=== PATIENT | male | born 1945 | race Caucasian/White ===

== ENCOUNTER 2018-10-16 06:14 | Day surgery (SDC) | payer MEDICARE ==
[2018-10-15 13:21] LABS: BASOPHILS # (AUTO) 0.1 X10'3 (0-0.2); BASOPHILS % (AUTO) 1.6 % (0-1); EOSINOPHILS # (AUTO) 0.1 X10'3 (0-0.9); EOSINOPHILS % (AUTO) 2.7 % (0-6); HEMATOCRIT 41.2 % (42.0-52.0); HEMOGLOBIN 13.8 g/dl (14.0-17.9); LYMPHOCYTES # (AUTO) 1.2 X10'3 (1.1-4.8); LYMPHOCYTES % (AUTO) 22.9 % (21-51); MEAN CORPUSCULAR HGB CONC 33.5 g/dL (33.0-36.5); MEAN CORPUSCULAR VOLUME 86.6 FL (78-98); MEAN PLATELET VOLUME 8.4 FL (7.4-10.4); MONOCYTES # (AUTO) 0.5 X10'3 (0-0.9); MONOCYTES % (AUTO) 8.8 % (2-12); NEUTROPHILS # (AUTO) 3.4 X10'3 (1.8-7.7); PLATELET COUNT 188 X10'3 (140-440); RED BLOOD COUNT 4.76 X10'6 (4.70-6.10); RED CELL DISTRIBUTION WIDTH 14.1 % (11.5-14.5); WHITE BLOOD COUNT 5.3 X10'3 (4.5-11.0)
[2018-10-15 13:29] LABS: ALBUMIN 3.5 G/DL (3.4-5.0); ANION GAP 7 (8-16); BLOOD UREA NITROGEN 20 MG/DL (7-18); CALCIUM 8.8 MG/DL (8.5-10.1); CHLORIDE 106 MMOL/L (99-107); CREATININE 1.25 MG/DL (0.60-1.10); GLUCOSE 77 MG/DL (70-104); POTASSIUM 4.3 MMOL/L (3.5-5.1); SODIUM 140 MMOL/L (135-145); TOTAL CARBON DIOXIDE 27.5 MMOL/L (24-32); eGFR 56 ML/MIN
[2018-10-15 13:33] LABS: PARTIAL THROMBOPLASTIN TIME 28 SECONDS (22-32)
[~2018-10-16] VITALS: Ht 172.7 cm; Wt 92.3 kg
[2018-10-16] VITALS (14 sets, daily range): BP systolic 100–138; BP diastolic 63–78
[~2018-10-16 06:14] MED LIST: CHOL200012; METO-539 PO; PRAS50TA; SUPER BETA PROSTATE; [UNRECOGNIZED DRUG - OTHER]
[2018-10-16] MEDS ORDERED: normal saline 1,000 ML IV SCH (06:40)
[2018-10-16] MEDS ORDERED: diphenhydrAMINE 25mg capsule PO PRN (06:40)
[2018-10-16] MEDS ORDERED: LORazepam 0.5 MG tablet PO PRN (06:40)
[2018-10-16] MEDS ORDERED: ASPI-147 (06:53)
[2018-10-16] MEDS ORDERED: SAW/1TAB2 (06:53)
[2018-10-16] MEDS ORDERED: AMIO200T54 PO (06:53)
[2018-10-16] MEDS ORDERED: LOPE2TAB23 (06:53)
[2018-10-16] MEDS ORDERED: midazolam 2 mg/2 ml injection ONE (07:09)
[2018-10-16] MEDS ORDERED: fentaNYL/PF 50MCG/1 ML 2ML syringe ONE (07:10)
[2018-10-16] MEDS ORDERED: LIDOcaine 1% (10mg/ml)w/preservative injection 20ml MDV ONE (07:10)
[2018-10-16] MEDS ORDERED: iohexol 350MG/ML 100ml bottle IV ONE ×2 (07:10→07:51)
[2018-10-16] MEDS ORDERED: pneumococcal 23-VAL P-sac vacc 25 mcg/0.5ml vial IMVAC ONE (07:20)
[2018-10-16] MEDS ORDERED: HYDROcodone/acetaminophen 5mg/325mg tablet PO PRN (08:35)
[2018-10-16] MEDS ORDERED: HYDROcodone/acetaminophen 10/325mg tab PO PRN (08:35)
[2018-10-16] MEDS ORDERED: proCHLORperazine 10 MG/2 ml inj IV PRN (08:35)
[2018-10-16] MEDS ORDERED: ondansetron/PF 4mg/2ml inj IV PRN (08:35)
[2018-10-16] MEDS ORDERED: OXAZEpam 15mg capsule PO PRN (08:35)
[2018-10-16] MEDS ORDERED: acetaminophen 325mg tablet PO PRN (08:35)
== END 2018-10-16 12:55 | disposition home or self-care (01) ==
LOC: SSTAY O 06:14
PROVIDERS: ATTEND Internal Medicine Interventional Cardiology
DX: I25.10 Atherosclerotic heart disease of native coronary artery without angina pectoris (principal); G47.33 Obstructive sleep apnea (adult) (pediatric); Z85.46 Personal history of malignant neoplasm of prostate; I50.9 Heart failure, unspecified; I11.0 Hypertensive heart disease with heart failure
CPT/HCPCS: 36415; 80048; 85025; 85610; 85730; 92920; 93005; 93458; 99152; 99153; A6257; J1644; J2001; J2250; J3010; J7030; Q0163; Q9967; A4620; C1725; C1760; C1769; C9607

== ENCOUNTER 2019-04-05 20:56 | Emergency (ER) | payer MEDICARE ==
[~2019-04-05] VITALS: Ht 172.7 cm; Wt 90.0 kg
[~2019-04-05 20:56] MED LIST changes: +AMIO200T54 PO; +ASPI-147; -CHOL200012; +LOPE2TAB23; -PRAS50TA; +SAW/1TAB2; -SUPER BETA PROSTATE; -[UNRECOGNIZED DRUG - OTHER]
--- NOTE | 2019-04-05 22:25 | NUR ---
Dr Harry at bedside to eval pt
[2019-04-05] MEDS ORDERED: iohexol 300mg/ml 100ml inj. ONE (22:36)
[2019-04-05 23:00] LABS: ALANINE AMINOTRANSFERASE 33 U/L (12-78); ALBUMIN 3.7 G/DL (3.4-5.0); ALBUMIN/GLOBULIN RATIO 1.1 (1.1-1.5); ALKALINE PHOSPHATASE 109 IU/L (46-116); ANION GAP 6 (8-16); ASPARTATE AMINO TRANSFERASE 23 U/L (10-37); BILIRUBIN,TOTAL 0.3 MG/DL (0.1-1.0); BLOOD UREA NITROGEN 15 MG/DL (7-18); BUN/CREATININE RATIO 12.7 (5.4-32.0); CALCIUM 8.6 MG/DL (8.5-10.1); CHLORIDE 108 MMOL/L (99-107); CREATININE 1.18 MG/DL (0.60-1.10); GLUCOSE 70 MG/DL (70-104); POTASSIUM 3.9 MMOL/L (3.5-5.1); SODIUM 141 MMOL/L (135-145); TOTAL CARBON DIOXIDE 27.1 MMOL/L (24-32); TOTAL PROTEIN 7.2 G/DL (6.4-8.2); eGFR 60 ML/MIN
[2019-04-05 23:29] LABS: BASOPHILS # (AUTO) 0.1 X10'3 (0-0.2); BASOPHILS % (AUTO) 0.8 % (0-1); EOSINOPHILS # (AUTO) 0.2 X10'3 (0-0.9); HEMOGLOBIN 14.1 g/dl (14.0-17.9); LYMPHOCYTES # (AUTO) 1.9 X10'3 (1.1-4.8); LYMPHOCYTES % (AUTO) 29.5 % (21-51); MEAN CORPUSCULAR HEMOGLOBIN 29.7 PG (27.0-31.0); MEAN CORPUSCULAR HGB CONC 33.7 g/dL (33.0-36.5); MEAN CORPUSCULAR VOLUME 88.2 FL (78-98); MONOCYTES # (AUTO) 0.6 X10'3 (0-0.9); MONOCYTES % (AUTO) 9.3 % (2-12); NEUTROPHILS # (AUTO) 3.7 X10'3 (1.8-7.7); NEUTROPHILS % (AUTO) 57.4 % (42-75); PLATELET COUNT 178 X10'3 (140-440); RED BLOOD COUNT 4.76 X10'6 (4.70-6.10); RED CELL DISTRIBUTION WIDTH 13.9 % (11.5-14.5); WHITE BLOOD COUNT 6.4 X10'3 (4.5-11.0)
[2019-04-05 23:45] LABS: CLARITY,URINE CLOUDY (Clear); COLOR,URINE RED (Yellow)
[2019-04-05 23:46] LABS: UA COLLECTION TYPE CLN CATCH MIDSTREAM
[2019-04-06 00:03] LABS: BACTERIA,URINE NONE SEEN /HPF (Neg); MUCUS STRANDS FEW /LPF (Neg); RBC,URINE TNTC /HPF (0-2); SQUAMOUS EPITHELIAL CELL,UR FEW /LPF (FEW); WBC,URINE 0-4 /HPF (0-4)
[2019-04-06] MEDS ORDERED: CEPH-572 PO (00:53)
[2019-04-06 02:59] VITALS: BP 126/68
== END 2019-04-06 03:02 | disposition home or self-care (01) ==
LOC: ER 20:56
DX: K80.20 Calculus of gallbladder without cholecystitis without obstruction (principal); K57.90 Diverticulosis of intestine, part unspecified, without perforation or abscess without bleeding; N28.1 Cyst of kidney, acquired; R31.9 Hematuria, unspecified; Z88.8 Allergy status to other drugs, medicaments and biological substances; Z79.899 Other long term (current) drug therapy; Z79.2 Long term (current) use of antibiotics; Z79.82 Long term (current) use of aspirin; Z87.442 Personal history of urinary calculi; Z85.46 Personal history of malignant neoplasm of prostate
CPT/HCPCS: 36415; 51700; 74178; 80053; 81001; 85025; 99284; Q9967

== ENCOUNTER 2019-06-24 09:34 | Day surgery (SDC) | payer MEDICARE ==
[~2019-06-24] VITALS: Ht 172.7 cm; Wt 90.9 kg
[2019-06-24 09:50] VITALS: BP 124/76
[2019-06-24] MEDS ORDERED: PRAS10TA6 PO (10:03)
[2019-06-24] MEDS ORDERED: MIDAZolam 5mg/5ml vial ONE (10:59)
[2019-06-24] MEDS ORDERED: fentaNYL/PF 50MCG/1 ML 2ML syringe ONE (10:59)
[2019-06-24 11:20] VITALS: BP 115/68
[2019-06-24 11:30] VITALS: BP 112/65
[2019-06-24 11:40] VITALS: BP 123/76
[2019-06-24 11:50] VITALS: BP 127/79
== END 2019-06-24 12:15 | disposition home or self-care (01) ==
LOC: GI LAB 09:34
PROVIDERS: ATTEND Internal Medicine Gastroenterology
DX: K92.1 Melena (principal); K64.8 Other hemorrhoids; K62.89 Other specified diseases of anus and rectum
CPT/HCPCS: 45334; G0500; J2250; J3010; J7040; 99152; A4620

== ENCOUNTER 2020-12-02 21:12 | Emergency (ER) | payer MEDICARE ==
[~2020-12-02] VITALS: Ht 172.7 cm; Wt 97.7 kg
[~2020-12-02 21:12] MED LIST changes: -AMIO200T54 PO; -METO-539 PO; +PRAS10TA6 PO
[2020-12-02 21:22] VITALS: BP 156/85
--- NOTE | 2020-12-02 22:25 | NUR ---
Catheter running clear sp irrigation
== END 2020-12-02 23:35 | disposition home or self-care (01) ==
LOC: ER 21:13
DX: N13.9 Obstructive and reflux uropathy, unspecified (principal); R31.9 Hematuria, unspecified; N99.820 Postprocedural hemorrhage of a genitourinary system organ or structure following a genitourinary system procedure; Z87.442 Personal history of urinary calculi; Z88.8 Allergy status to other drugs, medicaments and biological substances; Z79.899 Other long term (current) drug therapy
CPT/HCPCS: 99284

== ENCOUNTER → 2023-06-28 | Outpatient (CLI) | payer MEDICARE ==
[~2023-06-28] VITALS: Ht 172.7 cm; Wt 97.5 kg
[~2023-06-28] MED LIST changes: +ASPI-130 PO; +ASPI81TA52 PO; +ATOR40TA7 PO; +DEXT1TAB PO; +ESOM20CA PO; +FLUT15.815 NS; +L-METHYLFOLATE PO; +LOPE-190 PO; +cefazolin 2gm/D5W 100mL 100 ML IV ONE; +famotidine 20mg tablet PO ONE; +ringers solution, lacted 1,000 ML IV SCH; +tranexamic acid inj. 1,000 MG in normal saline IV soln 100ML IV ONE
[2023-06-28 15:38] LABS: BASOPHILS # (AUTO) 0.1 X10'3 (0-0.2); EOSINOPHILS # (AUTO) 0.1 X10'3 (0-0.9); EOSINOPHILS % (AUTO) 1.8 % (0-6); LYMPHOCYTES # (AUTO) 1.6 X10'3 (1.1-4.8); LYMPHOCYTES % (AUTO) 20.9 % (21-51); MEAN CORPUSCULAR HEMOGLOBIN 29.6 PG (27.0-31.0); MEAN CORPUSCULAR HGB CONC 33.9 g/dL (33.0-36.5); MEAN CORPUSCULAR VOLUME 87.3 FL (78-98); MEAN PLATELET VOLUME 8.3 FL (7.4-10.4); MONOCYTES # (AUTO) 0.6 X10'3 (0-0.9); MONOCYTES % (AUTO) 8.4 % (2-12); NEUTROPHILS # (AUTO) 5.1 X10'3 (1.8-7.7); NEUTROPHILS % (AUTO) 67.9 % (42-75); PRE OP HEMATOCRIT 42.7 % (42.0-52.0); PRE OP HEMOGLOBIN 14.5 g/dL (14.0-17.9); PRE OP PLATELET COUNT 172 X10'3 (140-440); PRE OP WHITE BLOOD COUNT 7.6 10'3 (4.8-10.8); RED BLOOD COUNT 4.89 X10'6 (4.70-6.10); RED CELL DISTRIBUTION WIDTH 14.7 % (11.5-14.5)
[2023-06-28 15:48] LABS: BILIRUBIN,URINE NEGATIVE (Neg); CLARITY,URINE CLOUDY (Clear); COLOR,URINE YELLOW (Yellow); GLUCOSE, URINE NEGATIVE (Neg); KETONES,URINE NEGATIVE (Neg); LEUKOCYTE ESTERASE ,URINE TRACE (Neg); NITRITES, URINE POSITIVE (Neg); OCCULT BLOOD,URINE TRACE-INTACT (Neg); PH,URINE 5.5 (4.8-8.0); PROTEIN,URINE NEGATIVE (Neg); UROBILINOGEN,URINE 0.2 E.U/dL (0.2-1.0)
[2023-06-28 15:50] LABS: PRE OP PROTIME 10.6 SECONDS (9.0-12.0)
[2023-06-28 15:52] LABS: UA COLLECTION TYPE VOIDED
[2023-06-28 16:01] LABS: ALBUMIN 3.6 G/DL (3.4-5.0); ALBUMIN/GLOBULIN RATIO 0.9 (1.1-1.5); ALKALINE PHOSPHATASE 156 IU/L (46-116); BLOOD UREA NITROGEN 14 MG/DL (7-18); BUN/CREATININE RATIO 12.8 (10.0-20.0); CALCIUM 9.2 MG/DL (8.5-10.1); CHLORIDE 105 MMOL/L (99-107); CREATININE 1.09 MG/DL (0.60-1.10); PRE OP ALT 47 U/L (30-65); PRE OP ANION GAP 7 (8-16); PRE OP AST 30 U/L (10-37); PRE OP BILIRUB, TOTAL 0.3 MG/DL (0.0-1.0); PRE OP GLUCOSE 88 MG/DL (70-104); PRE OP SODIUM 141 MMOL/L (135-145); TOTAL CARBON DIOXIDE 29.2 MMOL/L (24-32); TOTAL PROTEIN 7.5 G/DL (6.4-8.2); eGFR 65 ML/MIN
[2023-06-28 16:57] LABS: BACTERIA,URINE 4+ /HPF (Neg)
[2023-06-28 16:59] LABS: RBC,URINE 0-2 /HPF (0-2)
[2023-06-28 17:00] LABS: MUCUS STRANDS FEW /LPF (Neg); WBC CLUMPS,URINE FEW /HPF (NEGATIVE)
[2023-06-28 17:01] LABS: SQUAMOUS EPITHELIAL CELL,UR FEW /LPF (FEW)
[2023-06-28 17:02] LABS: WBC,URINE 20-30 /HPF (0-4)
[2023-07-03 14:05] LABS: BILIRUBIN,URINE NEGATIVE (Neg); CLARITY,URINE SLIGHTLY CLOUDY (Clear); COLOR,URINE YELLOW (Yellow); GLUCOSE, URINE NEGATIVE (Neg); KETONES,URINE NEGATIVE (Neg); LEUKOCYTE ESTERASE ,URINE NEGATIVE (Neg); NITRITES, URINE NEGATIVE (Neg); OCCULT BLOOD,URINE NEGATIVE (Neg); PH,URINE 5.5 (4.8-8.0); PROTEIN,URINE NEGATIVE (Neg); UROBILINOGEN,URINE 0.2 E.U/dL (0.2-1.0)
[2023-07-03 14:09] LABS: UA COLLECTION TYPE CLN CATCH MIDSTREAM
[2023-07-03 14:10] LABS: MUCUS STRANDS FEW /LPF (Neg); SQUAMOUS EPITHELIAL CELL,UR FEW /LPF (FEW)
[2023-07-03 14:11] LABS: CAL OXALATE CRYSTALS 4+ /HPF (NEGATIVE)
[2023-07-03 14:12] LABS: BACTERIA,URINE NONE SEEN /HPF (Neg); FINE GRANULAR CAST 0-3 /LPF (NEGATIVE); RBC,URINE 0-2 /HPF (0-2)
== END | disposition home or self-care (01) ==
LOC: LAB 14:18 → EDSTATUS 07-04 07:30
PROVIDERS: ATTEND Specialist
DX: Z01.812 Encounter for preprocedural laboratory examination (principal); M25.512 Pain in left shoulder; M19.012 Primary osteoarthritis, left shoulder
CPT/HCPCS: 36415; 71046; 80053; 81001; 85025; 85610; 85730; 86885; 86900; 86901; 87077; 87081; 87088; 87186; J0690; J3490; J7120